=== PATIENT | female | born 1975 | race Caucasian/White ===

== ENCOUNTER 2019-05-18 13:07 | Day surgery (SDC) | payer OTHER ==
[~2019-05-18] VITALS: Ht 162.6 cm; Wt 75.3 kg
[~2019-05-18 13:07] MED LIST: BUPR75TA5 PO; HYDR-3363 PO; LR 1,000 ML IV ONE; ceFAZolin SOD 2 GM in IV 1 EA IV ONE
[2019-05-18] MEDS ORDERED: dexameTHASONE 10 MG/1 ML VIAL PRES.FREE (J1100) ONE (13:08)
[2019-05-18] MEDS ORDERED: ROPIvacaine 0.5% 30 ML INJECTION (J2795 PER 1MG) ONE (13:08)
[2019-05-18] MEDS ORDERED: ALBU8.5H INH (13:50)
[2019-05-18] MEDS ORDERED: MIDAZOLAM INJ 2 MG/2 ML VIAL (J2250) As Ordered ONE ×2 (15:12→15:41)
[2019-05-18] MEDS ORDERED: fentaNYL 100 MCG/2 ML INJECTION (J3010) As Ordered ONE ×2 (15:12→15:41)
[2019-05-18] MEDS ORDERED: PROPOFOL 200 MG/20 ML VIAL As Ordered ONE ×3 (15:41→16:38)
[2019-05-18] MEDS ORDERED: PHENYLEPHRINE INJ 10MG/ML VIAL (J2370) As Ordered ONE (16:18)
[2019-05-18] MEDS ORDERED: PHENYLephrine HCL 500 MCG/5 ML (100MCG/ML) SYRINGE (J2370) As Ordered ONE (16:18)
[2019-05-18] MEDS ORDERED: MORPHINE 2 MG/ML 1ML VIAL (J2270) IV PRN (17:15)
[2019-05-18] MEDS ORDERED: ONDANSETRON 4MG/2ML VIAL (J2405) IV PRN (17:15)
[2019-05-18] MEDS ORDERED: LR 1,000 ML IV SCH (17:15)
[2019-05-18] MEDS: oxyCODONE 5MG TAB PO PRN ×2 (17:36→18:34)
--- NOTE | 2019-05-18 17:51 | REP ---
Clinical: Status post open reduction and fixation. Technique: Intraoperative fluoroscopic imaging using portable C-arm technique. Findings: The patient is known to be status post open reduction and fixation for distal fibular fracture. Satisfactory orthopedic hardware placement and alignment noted. Total fluoroscopic time 55 seconds (2.05 mGy). Impression: Status post open reduction and fixation. Electronically Signed by Romero Bradley MD 05/18/2019 05:42 P
[2019-05-18] MEDS: fentaNYL 100 MCG/2 ML INJECTION (J3010) IV PRN ×4 (17:53→18:26)
[2019-05-18] MEDS ORDERED: oxyCODONE 5MG TAB PO PRN ×2 (18:16)
[2019-05-18] MEDS ORDERED: oxyCODONE 5MG TAB As Ordered ONE (18:33)
--- NOTE | 2019-05-18 19:19 | RO ---
DATE OF PROCEDURE: 05/18/2019 PREPROCEDURE DIAGNOSIS: Right lateral malleolus and posterior malleolus ankle fracture with deltoid ligament injury. POSTPROCEDURE DIAGNOSIS: Lateral malleolus fracture, posterior malleolus fracture, and syndesmotic injury and deltoid injury. PROCEDURE: Open reduction internal fixation of bimalleolar ankle fracture with open reduction internal fixation of syndesmosis. SURGEON: Donal Joya MD T RAIL TURNER: None. ANESTHESIA: Spinal. INDICATIONS: This is a 43-year-old female who had a trip and fall and suffered an unstable ankle injury. We discussed the risks and benefits including but not limited to infection, damage to surrounding structures, malunion, nonunion, incomplete relief. Patient expressed understanding and agreement with this plan. TYPE OF ANTIBIOTICS: 2 grams of Ancef. TOURNIQUET TIME: 50 minutes. BLOOD LOSS: Minimal. COMPLICATIONS: None. DESCRIPTION OF PROCEDURE: The patient went back to the operating room (OR) in the supine position, underwent spinal anesthesia at which point the right leg was prepped and draped in the usual fashion. A time-out confirming site, side and surgery, then elevated the tourniquet to 250 mmHg. We then made a longitudinal incision over the fibula, dissected sharply down to the fibula fracture and proximally, carefully identifying the superficial peroneal nerve and retracting anteriorly. At which point, we irrigated and debrided the fracture site. We used a [id number] reduction clamp to hold our reduction. We initially attempted a lag screw; however, due to the poor integrity of the cortex, we changed plans and used three K-wires to hold the reduction, removed the [id number] reduction clamp, confirmed on AP and lateral x-rays the reduction was accurate and well maintained. We then used a distal fibula locking plate and placed cortical screws in place, suck the plate down to bone at which point there was some obvious talar tilt to the ankle fracture signifying syndesmotic injury. We then used a 3.5 lag screw by technique to suck down the distal plate and compress across the syndesmosis. We confirmed on AP and lateral accurate placement of this. At which point, we used multiple distal locking screws and one proximal locking screw to finish our fixation. The final hardware reduction and fracture reduction hardware placement was confirmed on AP, lateral and oblique films along with a stress film indicating secure fixation of the bimalleolar ankle fracture and syndesmosis. At which point, the wounds were irrigated, thoroughly closed the fascia over the plate with #2-0 Vicryl and subcutaneous tissue #2-0 Vicryl and siddhartha for skin. Placed the patient in a posterior slab short-leg splint, let down the tourniquet and the patient was taken stably to the post-anesthesia care unit (PACU). POSTOPERATIVE PLAN: The patient will be touchdown weightbearing for approximately 6 weeks. Will see her back in 2 weeks. Will work on pain control. Will switch her over to a Cam boot for range of motion. At 6 weeks, as long as we see interval healing, we will progress the patient to weightbearing as tolerated. Patient expressed understanding of this ahead of time.
[2019-05-18 20:15] VITALS: BP 119/69
== END 2019-05-18 20:30 | disposition home or self-care (01) ==
LOC: M SDC 13:07
PROVIDERS: ATTEND Orthopaedic Surgery Hand Surgery
DX: S82.841A Displaced bimalleolar fracture of right lower leg, initial encounter for closed fracture (principal); S93.491A Sprain of other ligament of right ankle, initial encounter; F41.9 Anxiety disorder, unspecified; F32.9 Major depressive disorder, single episode, unspecified; B19.20 Unspecified viral hepatitis C without hepatic coma; Z88.5 Allergy status to narcotic agent; Z79.899 Other long term (current) drug therapy; Z87.891 Personal history of nicotine dependence; W01.0XXA Fall on same level from slipping, tripping and stumbling without subsequent striking against object, initial encounter; Y93.9 Activity, unspecified; Y92.9 Unspecified place or not applicable; Y99.9 Unspecified external cause status
CPT/HCPCS: 27814; 27829; 36415; 76000; 81025; 86850; 86900; 86901; C1713; J0690; J1100; J2250; J2370; J2795; J3010